=== PATIENT | male | born 1985 | race Caucasian/White ===

== ENCOUNTER → 2021-11-16 13:30 | Outpatient (REF) | payer OTHER, SELFPAY ==
--- NOTE | 2021-11-16 13:33 | ECG_ITS ---
Hook-up date: 2021-11-16 12:47:00 Duration: 41:10:00 Test Indications: PALPITATIONS Medications: [id number] QRS complexes 2 Ventricular ectopics which represent <1 % of total QRS comp. 4 Supraventricular ectopics which represent <1 % of total QRS comp. * Paced QRS complexs which represent % of total QRS comp. VENTRICULAR ECTOPY 2 Isolated 0 Bigeminal Cycles 0 Couplets 0 Runs 0 Beats in Runs * Beats LONGEST at * BPM at :: -- * Beats FASTEST at * BPM at :: -- SUPRAVENTRICULAR ECTOPY 4 Isolated 0 Couplets 0 Runs 0 Beats in Runs * Beats LONGEST at * BPM at :: -- * Beats FASTEST at * BPM at :: -- HEART RATES 45 MIN at 04:22:30 2021-11-17 77 AVG 162 MAX at 13:07:42 2021-11-17 LONGEST RR 1.5360 secs at 04:33:22 2021-11-17 S-T LEVELS Channel 1 - 128 mm at 12:47:00 2021-11-16 - 128 mm at 12:47:00 2021-11-16 Channel 2 - 128 mm at 12:47:00 2021-11-16 - 128 mm at 12:47:00 2021-11-16 Channel 3 - 128 mm at 03:20:61 -- - 128 mm at 03:20:61 Underlying rhythm is sinus; Average ventricular rate 77/min; range 45-162/min; Sinus tachycardia noted; Otherwise, no significant ectopy, tachy or bradyarrhythmias; Patient did not report any symptoms in the diary Referred By: Carlin Reagan Overread By: JANET FOSTER
== END ==
LOC: HO.CARD 13:30
PROVIDERS: PCP Nurse Practitioner Family; Visit Provider Nurse Practitioner Family
DX: R00.2 Palpitations (principal)
CPT/HCPCS: 93225; 93226

== ENCOUNTER 2023-03-23 09:28 | Outpatient (AMB) | payer OTHER, SELFPAY ==
--- NOTE | 2023-03-23 09:28 | MHC.OFFWIV ---
Intake Vital Signs 03/23/23 09:29 Height 5 ft 7 in Weight 177 lb BMI 27.7 BP 130/70 Blood Pressure Location Rt brachial Position Sitting Pulse 101 H Pulse Source Pulse Oximeter Temp 98.7 F Temp Source Oral Pulse Oximetry (%) 98 Oxygen Delivery Method Room Air Intake Visit Reasons: EST/sore throat(masked lobby) Patient Tobacco Use Status: Current everyday Tobacco user Allergies No Known Allergies Allergy (Verified 03/23/23 09:33) Do you need a note to return to daycare/school/sports/work: No HPI EST/sore throat(masked lobby) HPI Details 38-year-old male patient presents today with sore throat, body aches, productive cough with yellow sputum since yesterday. Denies known exposure to sick contacts however reports working in close proximity to many people throughout the week. Denies any fever or chills. Denies any shortness of breath. PFS Family History Mother Anemia Paternal Grandmother Hypertension Diabetes Other Substance use disorder Social History Housing: Condominium Patient Tobacco Use Status: Current everyday Tobacco user Cigarette Packs Per Day: 0.5 e-Cigarette/Vaping Use: Never Used Current occupational status: employed Cognitive needs: No Hearing needs: No Vision needs: No Review of Systems Const All systems reviewed & are unremarkable except as noted in HPI and below Physical Exam Vital Signs: BMI result Body Mass Index 27.7 Const General: cooperative, comfortable and no acute distress HEENT Head: Yes normal to inspection General nose exam: Normal external nose present, Normal nares present and Normal nasal mucous membranes and turbinates present Face and sinus: Yes normal facial exam and Yes sinuses nontender Mouth: Normal oral and palatal mucosa present and moist mucous membranes Throat: Yes tonsils normal and Yes posterior oropharynx abnormal (Mild erythema) Neck Neck: Yes no lymphadenopathy Resp Effort & Inspection: normal respiratory effort and able to speak in complete sentences Auscultation: clear to auscultation bilaterally Cardio Jugular venous distension: no JVD Palpation: normal PMI Rate: regular rate Rhythm: regular rhythm Skin General skin exam: no rashes or lesions noted Extrem General: Yes capillary refill normal and Yes no clubbing, cyanosis or edema Psych Appearance: grossly normal Mental Status: mental status grossly normal Speech and movement: Normal speech and movement present Results AMB Rapid Strep AMB Rapid Strep Negative Last Edit by Elsa Rajput CMA on 03/23/23 09:56 Assessment & Plan Assessment & Plan (1) Upper respiratory infection: Code(s): J06.9 - Acute upper respiratory infection, unspecified Qualifiers: URI type: unspecified viral URI Qualified Code(s): J06.9 - Acute upper respiratory infection, unspecified Plan: Patient presents with symptoms consistent with viral illness. He declined viral testing today, and states he will do a COVID test at home. Rapid strep test in the office was negative. I discussed with patient that symptoms are likely self-limiting, and he may treat conservatively with [id number] cold/flu medications as needed. Encourage hydration, Tylenol, rest, vitamin C intake. If he does not improve with time and conservative measures, he can certainly return to the clinic for further evaluation. He verbalizes understanding and agrees to plan. Orders: Orders AMB Rapid Strep Screen Today Z13.9 - Encounter for screening, unspecified Coding Level of Care Code Est Pt Level 3 (71820) Diagnoses Viral upper respiratory tract infection J06.9 URI type: unspecified viral URI
[2023-03-23 09:29] VITALS: BP 130/70; PULSE 101; TEMP 37.1; O2SAT 98; BMI 27.7
== END 2023-03-23 10:02 | disposition home or self-care (01) ==
PROVIDERS: PCP Nurse Practitioner Family; Visit Provider Nurse Practitioner Family
DX: J06.9 Acute upper respiratory infection, unspecified (principal); J02.9 Acute pharyngitis, unspecified
CPT/HCPCS: 87880; 99213